=== PATIENT | male | born 1970 | race Caucasian/White ===

== ENCOUNTER 2018-03-05 00:44 | Emergency (ER) | payer BC ==
[~2018-03-05] VITALS: Ht 180.3 cm; Wt 86.0 kg
[2018-03-05] MEDS ORDERED: PROPOFOL 10 MG/ML, 20ML IVPush ONE (01:00)
[2018-03-05] MEDS ORDERED: SODIUM CHLORIDE FLUSH 10ML SYR IVF ONE (01:00)
[2018-03-05] MEDS ORDERED: PROPOFOL 10 MG/ML, 20ML ONE (01:09)
[2018-03-05 02:05] VITALS: BP 125/80
== END 2018-03-05 02:54 | disposition home or self-care (01) ==
LOC: ED 01:09
DX: S43.084A Other dislocation of right shoulder joint, initial encounter (principal); X50.9XXA Other and unspecified overexertion or strenuous movements or postures, initial encounter; Y93.89 Activity, other specified; Y92.89 Other specified places as the place of occurrence of the external cause; Y99.8 Other external cause status
CPT/HCPCS: 23650; 73030; 99285; J2704